=== PATIENT | male | born 1955 ===

== ENCOUNTER 2025-05-02 13:43 | Day surgery (SDC) | payer MEDICARE ==
[~2025-05-02] VITALS: Ht 177.8 cm; Wt 80.4 kg
[~2025-05-02 13:43] MED LIST: Glycopyrrolate 0.2 MG/ML 1MLVIAL ONE; Ondansetron HCl 2 MG / ML 2ML Vial ONE; ePHEDrine Sulfate 50 MG/ML 1ML Injection ONE
[2025-05-02] MEDS ORDERED: ALBU90OI (14:06)
[2025-05-02] MEDS ORDERED: Aspir 8181 MG (14:06)
[2025-05-02] MEDS ORDERED: ATOR80 (14:06)
[2025-05-02] MEDS ORDERED: ECHINACEA125 MG (14:07)
[2025-05-02] MEDS ORDERED: Norco 5-325 Ta1 EACH (14:07)
[2025-05-02] MEDS ORDERED: Vitamin D1000 UNI1 (14:07)
[2025-05-02] MEDS ORDERED: MELATONIN5 M1 (14:07)
[2025-05-02] MEDS ORDERED: BUSP5 (14:07)
[2025-05-02] MEDS ORDERED: OMEP20ER (14:08)
[2025-05-02] MEDS ORDERED: Robaxin750 MG (14:08)
[2025-05-02] MEDS ORDERED: MIRT30 (14:08)
[2025-05-02] MEDS ORDERED: MULVITA (14:08)
[2025-05-02] MEDS ORDERED: Inderal40 MG (14:09)
[2025-05-02] MEDS ORDERED: PREG50 (14:09)
[2025-05-02] MEDS ORDERED: [UNRECOGNIZED DRUG - OTHER] (14:09)
[2025-05-02] MEDS ORDERED: Vitamin B Comple1 EA (14:09)
[2025-05-02] MEDS ORDERED: ZINC15 (14:10)
== END 2025-05-02 16:14 | disposition home or self-care (01) ==
LOC: ORSCSDS 13:43
PROVIDERS: Internal Medicine Gastroenterology
PROC: 0DB68ZX Excision of Stomach, Via Natural or Artificial Opening Endoscopic, Diagnostic (ICD-10-PCS; principal; 2025-05-02 15:15)
PROC: 0DB98ZX Excision of Duodenum, Via Natural or Artificial Opening Endoscopic, Diagnostic (ICD-10-PCS; principal; 2025-05-02 15:15)
DX: R10.13 Epigastric pain (principal); R11.2 Nausea with vomiting, unspecified; I71.43 Infrarenal abdominal aortic aneurysm, without rupture; F41.9 Anxiety disorder, unspecified; E78.00 Pure hypercholesterolemia, unspecified; J45.909 Unspecified asthma, uncomplicated; Z79.82 Long term (current) use of aspirin; Z79.899 Other long term (current) drug therapy; F17.210 Nicotine dependence, cigarettes, uncomplicated
CPT/HCPCS: 88305; 88342; J0461; J2405; J2704; J7120